=== PATIENT | female | born 1990 | race Caucasian/White ===

== ENCOUNTER 2022-03-06 10:59 | Emergency (ER) | payer SELFPAY ==
[~2022-03-06] VITALS: Ht 165.1 cm; Wt 58.1 kg
[2022-03-06] MEDS ORDERED: IV NS 0.9% 1,000 ML BAG IV ONE (11:00)
[2022-03-06] MEDS ORDERED: KETOROLAC TROMETHAMINE INJ 30 MG/ML VIAL IV ONE (11:00)
--- NOTE | 2022-03-06 11:00 | NUR ---
Patient came in to the er c/o vaginal bleeding x 20 days, IUD last august 04 pain scale. On room air, breathing evenly and unlabored. Kept comfortable, will continue to monitor accordingly.
--- NOTE | 2022-03-06 11:10 | NUR ---
Urine collected and sent to lab.
[2022-03-06 11:12] LABS: EOSINOPHILS % (AUTO) 0.6 % (0.0-6.0); HEMATOCRIT 38 % (33-45); HEMOGLOBIN 12.4 g/dL (11.5-14.8); LYMPHOCYTES # (AUTO) 1.4 K/uL (0.8-4.8); LYMPHOCYTES % (AUTO) 31.6 % (20.0-44.0); MEAN CORPUSCULAR HGB CONC 33 g/dl (31.0-36.0); MEAN CORPUSCULAR VOLUME 85 fL (82-100); MONOCYTES # (AUTO) 0.4 K/uL (0.1-1.30); MONOCYTES % (AUTO) 8.5 % (2.0-12.0); NEUTROPHILS # (AUTO) 2.6 K/uL (1.8-8.9); NEUTROPHILS % (AUTO) 58.3 % (43.0-81.0); PLATELET COUNT (AUTO) 250 K/uL (150-450); RED BLOOD CELL COUNT(AUTO) 4.49 MIL/uL (4.0-5.2); WHITE BLOOD COUNT (AUTO) 4.4 K/uL (4.3-11.0)
[2022-03-06 11:21] LABS: CALCIUM, SERUM 9.1 mg/dL (8.5-10.1); CREATININE 0.7 mg/dL (0.6-1.3); POTASSIUM 3.5 mmol/L (3.5-5.1)
[2022-03-06] MEDS ORDERED: KETOROLAC TROMETHAMINE 15 MG/ML VIAL ONE (11:48)
--- NOTE | 2022-03-06 12:00 | NUR ---
IV removed. Catheter intact and site benign. Pressure and 4x4 applied to site. No bleeding noted.Patient discharged to home in stable condition. Written and verbal after care instructions given. Patient verbalizes understanding of instruction.
[2022-03-06 12:19] VITALS: BP 120/75
== END 2022-03-06 12:19 | disposition home or self-care (01) ==
LOC: ER 10:59
DX: N93.8 Other specified abnormal uterine and vaginal bleeding (principal)
CPT/HCPCS: 36415; 76856; 80048; 84702; 85025; 85730; 96361; 96374; 99284; J1885; J7030

== ENCOUNTER 2024-11-20 09:26 | Emergency (ER) | payer MEDICAID ==
[~2024-11-20] VITALS: Ht 157.5 cm; Wt 59.0 kg
[2024-11-20] MEDS ORDERED: METH4TAB3 PO (10:03)
[2024-11-20] MEDS ORDERED: LIDO30AD10 TP (10:03)
[2024-11-20] MEDS ORDERED: CYCL5TAB PO (10:03)
[2024-11-20] MEDS ORDERED: IBUP-1955 PO (10:03)
[2024-11-20] MEDS ORDERED: KETOROLAC TROMETHAMINE 15 MG/ML VIAL ONE (10:07)
[2024-11-20] MEDS ORDERED: LIDOCAINE 5% (PATCH) 1 EA PATCH TP ONE (10:07)
[2024-11-20] MEDS: LIDOCAINE 5% (PATCH) 1 EA PATCH TP STA (10:11)
[2024-11-20] MEDS: KETOROLAC TROMETHAMINE 15 MG/ML VIAL IM ONE (10:11)
[2024-11-20 10:17] VITALS: BP 117/67; TEMP 98.3; O2SAT 99
== END 2024-11-20 10:15 | disposition home or self-care (01) ==
LOC: ER 09:30
DX: M54.50 Low back pain, unspecified (principal); M79.651 Pain in right thigh
CPT/HCPCS: 99283; 96372; J1885